=== PATIENT | male | born 1950 | race Caucasian/White ===

== ENCOUNTER 2022-03-26 06:32 | Day surgery (SDC) | payer MEDICARE, OTHER ==
[~2022-03-26] VITALS: Ht 170.2 cm; Wt 83.9 kg
[2022-03-26] MEDS ORDERED: MIDAZOLAM 2 MG/2 ML VIAL ONE (08:33)
[2022-03-26] MEDS ORDERED: fentaNYL citrate 0.05 MG/ML VIAL ONE (08:33)
[2022-03-26] MEDS ORDERED: MIDAZOLAM 2 MG/2 ML VIAL IVP ONE (09:05)
== END 2022-03-26 09:16 | disposition home or self-care (01) ==
LOC: MDS 06:32 → MMU 06:34 → MDS 09:16
PROVIDERS: ATTEND Internal Medicine Gastroenterology
DX: R13.10 Dysphagia, unspecified (principal); Z85.46 Personal history of malignant neoplasm of prostate; Z20.822 Contact with and (suspected) exposure to COVID-19; Z79.899 Other long term (current) drug therapy
CPT/HCPCS: 43235; 87426; J2250; J3010